=== PATIENT | female | born 1985 | race American Indian/Alaskan Native ===

== ENCOUNTER 2016-09-07 07:05 | Day surgery (SDC) | payer MEDICAID ==
[~2016-09-07 07:05] MED LIST: XYLOCAINE MPF 2% ONE
[2016-09-07] MEDS ORDERED: WATER FOR IRRIG STERILE IR ONE (07:18)
[2016-09-07] MEDS ORDERED: NACL 0.9% 1000 ML 1,000 ML IV SCH (08:00)
[2016-09-07] MEDS ORDERED: DIPRIVAN 10 MG/ML IV ONE ×2 (08:41→08:42)
--- NOTE | 2016-09-07 08:57 | Post Operative Note ---
Pre-op diagnosis: dyspepsia Post-op diagnosis: other (hiatal hernia, retained semi-solid food in stomach) Findings: Esophagus: hiatal hernia otherwise unremarkable Stomach: some retained semi-solid food in stomach, suggestive of possible gastroparesis, otherwise unremarkable Duodenum appeared normal Procedure: EGD Anesthesia: MAC Surgeon: ABDULKADIR PAULSON Estimated blood loss: none Pathology: none Condition: stable Disposition: same day
[2016-09-07 09:16] VITALS: BP 113/79
--- NOTE | 2016-09-07 09:16 | Operative Report ---
PROCEDURE: EGD. PREOPERATIVE DIAGNOSIS: Dyspepsia. POSTOPERATIVE DIAGNOSES: Hiatal hernia, some semi-solid retained food in the stomach, otherwise unremarkable EGD. ANESTHESIA: Monitored anesthesia care. ESTIMATED BLOOD LOSS: None. COMPLICATIONS: No immediate complications. DESCRIPTION OF PROCEDURE: After consent was obtained, a standard upper Fujinon scope was advanced with direct vision through the mouth and advanced with ease to the second portion of duodenum. The views of the mucosa were good. The patient tolerated the procedure well. FINDINGS: ESOPHAGUS: There was a moderate size hiatal hernia, but otherwise the esophagus appeared normal. STOMACH: There was some semi-solid retained food in the gastric body suggestive of possible gastroparesis. Otherwise, the stomach appeared normal. DUODENUM: Appeared normal. IMPRESSION: 1. Small amounts of semi-solid food in the stomach, suggestive of possible gastroparesis. 2. Hiatal hernia. 3. Otherwise, unremarkable esophagogastroduodenoscopy. RECOMMENDATIONS: 1. Recommending gastric emptying study, which can be done as an outpatient. 2. Follow up in GI clinic in 1 month. 3. Continue to avoid NSAID medications. JOB# [id number] GRANT/NTS
--- NOTE | 2016-09-07 09:38 | Post Anesthesia Evaluation ---
- Post Anesthesia Evaluation Patient Participated: Yes Airway Patent: Yes Stable Respiratory Function: Yes Nausea/Vomiting: No Temp > 96.8F: Yes Pain Manageable: Yes Adequeate Hydration: Yes Anesthesia Complications: No Block Receding Appropriately: Not Applicable Patient on Ventilator: No
--- NOTE | 2016-09-07 09:38 | Anesthesia Consultation ---
Anesthesia Consult and Med Hx Date of service: 09/07/16 - Airway Anesthetic Teeth Evaluation: Good ROM Head & Neck: Adequate Mental/Hyoid Distance: Adequate Mallampati Class: Class II Intubation Access Assessment: Probably Good - Pulmonary Exam CTA: Yes - Cardiac Exam Cardiac Exam: RRR - Pre-Operative Health Status ASA Pre-Surgery Classification: ASA2 Proposed Anesthetic Plan: MAC - Pulmonary Hx Asthma: Yes - Cardiovascular System Hx Hypertension: Yes - Gastrointestinal Hx Gastroesophageal Reflux Disease: Yes - Endocrine Hx Non-Insulin Dependent Diabetes: Yes
--- NOTE | 2016-09-07 09:38 | Anesthesia Day of Surgery ---
Anesthesia Day of Surgery - Day of Surgery Patient Examined: Yes Patient H&P Reviewed: Yes Patient is NPO: Yes
== END 2016-09-07 07:06 | disposition home or self-care (01) ==
LOC: GIO 07:05
PROVIDERS: ATTEND Internal Medicine Gastroenterology
DX: K44.9 Diaphragmatic hernia without obstruction or gangrene (principal); I10 Essential (primary) hypertension; K21.9 Gastro-esophageal reflux disease without esophagitis; E11.9 Type 2 diabetes mellitus without complications; J45.909 Unspecified asthma, uncomplicated; E66.9 Obesity, unspecified; Z68.34 Body mass index [BMI] 34.0-34.9, adult; Z98.51 Tubal ligation status; Z98.890 Other specified postprocedural states; Z72.89 Other problems related to lifestyle; Z83.3 Family history of diabetes mellitus
CPT/HCPCS: 43235; 81025; 82962; J2704; J7030

== ENCOUNTER 2016-11-24 06:56 | Outpatient (CLI) | payer MEDICAID ==
--- NOTE | 2016-11-24 10:03 | Nuclear Medicine Report ---
NUCLEAR MEDICINE GASTRIC EMPTYING SCAN HISTORY: Abdominal pain, early satiety, loss of appetite. FINDINGS: Anterior abdominal imaging was obtained for 90 minutes following 1 mCi of technetium 99m sulfur colloid in oatmeal. The scintigraphic images demonstrate a half life for gastric emptying measuring 40 minutes. There is no scintigraphic evidence for reflux disease. IMPRESSION: Normal gastric emptying.
== END 2016-11-24 06:57 | disposition home or self-care (01) ==
LOC: NM 06:56
PROVIDERS: ATTEND Internal Medicine Gastroenterology
DX: R14.0 Abdominal distension (gaseous) (principal); R10.12 Left upper quadrant pain; R68.81 Early satiety; R11.2 Nausea with vomiting, unspecified
CPT/HCPCS: 78264; A9541